=== PATIENT | male | born 1945 ===

== ENCOUNTER → 2023-08-05 10:15 | Outpatient (REF) | payer OTHER, SELFPAY | LOC: DHCBS HW 10:15 | PROVIDERS: ATTENDING PHYSICIAN Internal Medicine Cardiovascular Disease; FAMILY PHYSICIAN Nurse Practitioner Family | DX: I35.1 Nonrheumatic aortic (valve) insufficiency (principal); I70.0 Atherosclerosis of aorta | CPT/HCPCS: 93306 ==

== ENCOUNTER → 2023-09-02 10:00 | Outpatient (REF) | payer OTHER, SELFPAY | LOC: HWRAD 10:00 | PROVIDERS: ATTENDING PHYSICIAN Nurse Practitioner Family | DX: R22.31 Localized swelling, mass and lump, right upper limb (principal) | CPT/HCPCS: 76882 ==

== ENCOUNTER → 2023-11-26 08:07 | Outpatient (REF) | payer OTHER, SELFPAY | LOC: HWRAD 08:07 | PROVIDERS: ATTENDING PHYSICIAN Nurse Practitioner Family | DX: M85.80 Other specified disorders of bone density and structure, unspecified site (principal) | CPT/HCPCS: 77080 ==

== ENCOUNTER → 2023-12-27 08:47 | Outpatient (REF) | payer OTHER, SELFPAY ==
[2023-12-27 12:31] LABS: Potassium 3.4 mmol/L (3.5-5.1)
[2023-12-27 13:06] LABS: PSA, Total - Screen 1.73 ng/ml (0.0-4.0)
== END ==
LOC: HWLAB 08:47
PROVIDERS: ATTENDING PHYSICIAN Nurse Practitioner Family
DX: Z12.5 Encounter for screening for malignant neoplasm of prostate (principal); E87.6 Hypokalemia
CPT/HCPCS: 36415; 84132; G0103

== ENCOUNTER → 2024-03-11 10:55 | Outpatient (REF) | payer OTHER, SELFPAY | LOC: HWRAD 10:55 | PROVIDERS: ATTENDING PHYSICIAN Nurse Practitioner Family | DX: R06.01 Orthopnea (principal) | CPT/HCPCS: 71046 ==

== ENCOUNTER → 2024-04-29 16:16 | Outpatient (REF) | payer OTHER, SELFPAY | LOC: HWRAD 16:16 | PROVIDERS: ATTENDING PHYSICIAN Nurse Practitioner Family | DX: M25.9 Joint disorder, unspecified (principal); M79.671 Pain in right foot | CPT/HCPCS: 73564; 73630 ==

== ENCOUNTER → 2024-05-22 16:07 | Outpatient (REF) | payer OTHER, SELFPAY | LOC: HWRAD 16:07 | PROVIDERS: ATTENDING PHYSICIAN Nurse Practitioner Family | DX: M25.531 Pain in right wrist (principal) | CPT/HCPCS: 73110 ==

== ENCOUNTER → 2024-08-10 13:54 | Outpatient (REF) | payer OTHER, SELFPAY | LOC: HWRCS 13:54 | PROVIDERS: ATTENDING PHYSICIAN Internal Medicine Cardiovascular Disease; FAMILY PHYSICIAN Nurse Practitioner Family | DX: I35.1 Nonrheumatic aortic (valve) insufficiency (principal) | CPT/HCPCS: 93306 ==

== ENCOUNTER → 2024-08-14 14:50 | Outpatient (REF) | payer OTHER, SELFPAY | LOC: HWRAD 14:50 | PROVIDERS: ATTENDING PHYSICIAN Nurse Practitioner Family | DX: R06.02 Shortness of breath (principal) | CPT/HCPCS: 71046 ==

== ENCOUNTER → 2024-08-18 06:55 | Outpatient (REF) | payer OTHER, SELFPAY ==
[2024-08-18 09:32] LABS: % Basophils 0.8 % (0-2); % Eosinophils 1.3 % (0-6); % Immature Granulocytes 0.4 % (0-0.5); % Monocytes 9.4 % (1.7-9.3); % Neutrophils 60.1 % (42.2-75.2); Absolute Basophils 0.1 10^3/uL (0-0.2); Absolute Eosinophils 0.1 10^3/uL (0-0.7); Absolute Lymphocytes 2.2 10^3/uL (1.2-3.4); Absolute Monocytes 0.8 10^3/uL (0.1-0.6); Absolute Neutrophils 4.8 10^3/uL (1.4-6.5); Hematocrit 43.3 % (39.0-52.0); Hemoglobin 14.5 g/dL (13.0-18.0); Mean Corp Hgb Conc. 33.5 g/dL (33.0-37.0); Mean Corpuscular Hgb 32.8 pg (27.0-31.0); Nucleated Red Blood Cells % 0 % (-); Platelet Count 213 10^3/uL (130-400); Red Blood Cell Count 4.42 10^6/uL (4.70-6.10); Red Cell Dist. Width 13.6 % (11.5-14.5)
[2024-08-18 09:36] LABS: Urine Albumin Negative (Neg - Trace); Urine Bilirubin Negative (Negative); Urine Character Clear (Clear); Urine Color Yellow; Urine Glucose Negative (Negative); Urine Ketone Negative (Negative); Urine Leukocyte Negative (Negative); Urine Nitrite Negative (Negative); Urine Occult Blood 2+ (Negative); Urine Specific Gravity 1.015 (<1.030); Urine Urobilinogen Negative (Neg - 1+)
[2024-08-18 09:51] LABS: Urine Squamous Cell 0-2 /LPF (Few); Urine White Cell 0-2 /HPF (0-5)
[2024-08-18 10:15] LABS: Glycohemoglobin (HgbA1c) 5.8 % (4.0-5.6)
[2024-08-18 10:35] LABS: ALT (SGPT) 34 U/L (0-50); AST (SGOT) 35 U/L (17-59); Albumin 4.6 g/dl (3.5-5.0); Alkaline Phosphatase 68 U/L (38-126); Blood Urea Nitrogen 21 mg/dl (9-20); Calcium 9.6 mg/dl (8.4-10.2); Carbon Dioxide 26 mmol/L (22-30); Chloride 105 mmol/L (98-107); Glucose 108 mg/dl (70-99); HDL Cholesterol 57 mg/dl; LDL Cholesterol, Calculated 32 mg/dl; Potassium 3.6 mmol/L (3.5-5.1); Sodium 144 mmol/L (135-145); Total Bilirubin 1.2 mg/dl (0.2-1.3); Total Cholesterol 124 mg/dl (50-199); Total Protein 7.3 g/dl (6.3-8.2); Triglyceride 177 mg/dl (10-149); Very Low Density Lipoprotein 35 mg/dl (0-30); eGFR > 60.00
[2024-08-18 10:41] LABS: Vitamin D, 25-OH*** 47.5 ng/mL (30-80)
[2024-08-18 10:54] LABS: TSH Reflex To Free T4 3.31 uIU/ml (0.47-4.68)
== END ==
LOC: HWLAB 06:55
PROVIDERS: ATTENDING PHYSICIAN Internal Medicine Cardiovascular Disease; FAMILY PHYSICIAN Nurse Practitioner Family
DX: I10 Essential (primary) hypertension (principal); H44.23 Degenerative myopia, bilateral; I35.1 Nonrheumatic aortic (valve) insufficiency; E78.1 Pure hyperglyceridemia; R73.01 Impaired fasting glucose; K76.0 Fatty (change of) liver, not elsewhere classified; E55.9 Vitamin D deficiency, unspecified; R31.9 Hematuria, unspecified; Z12.5 Encounter for screening for malignant neoplasm of prostate; M85.80 Other specified disorders of bone density and structure, unspecified site; D22.9 Melanocytic nevi, unspecified
CPT/HCPCS: 36415; 80053; 80061; 81003; 81015; 82306; 83036; 83880; 84443; 85025

== ENCOUNTER → 2024-09-16 07:59 | Outpatient (REF) | payer OTHER, SELFPAY | LOC: HWRCS 07:59 | PROVIDERS: ATTENDING PHYSICIAN Internal Medicine Cardiovascular Disease; FAMILY PHYSICIAN Nurse Practitioner Family | DX: I35.1 Nonrheumatic aortic (valve) insufficiency (principal); Q23.1 Congenital insufficiency of aortic valve; E78.5 Hyperlipidemia, unspecified; I10 Essential (primary) hypertension | CPT/HCPCS: 78452; 93017; A9500; J2785 ==

== ENCOUNTER → 2024-10-12 12:49 | Outpatient (REF) | payer OTHER, SELFPAY ==
[2024-10-12 16:13] LABS: Blood Urea Nitrogen 19 mg/dl (9-20); Calcium 10.2 mg/dl (8.4-10.2); Carbon Dioxide 29 mmol/L (22-30); Chloride 110 mmol/L (98-107); Glucose 115 mg/dl (70-99); Sodium 145 mmol/L (135-145); eGFR > 60.00
[2024-10-12 16:19] LABS: D-Dimer 0.39 ug/mlFEU (0.00-0.50)
== END ==
LOC: HWLAB 12:49
PROVIDERS: ATTENDING PHYSICIAN Internal Medicine Cardiovascular Disease; FAMILY PHYSICIAN Nurse Practitioner Family
DX: I10 Essential (primary) hypertension (principal); E78.5 Hyperlipidemia, unspecified
CPT/HCPCS: 36415; 80048; 85379

== ENCOUNTER → 2025-01-04 09:48 | Outpatient (REF) | payer OTHER, SELFPAY ==
[2025-01-04 13:00] LABS: PSA, Total - Screen 0.79 ng/ml (0.0-4.0)
== END ==
LOC: HWLAB 09:48
PROVIDERS: ATTENDING PHYSICIAN Specialist; FAMILY PHYSICIAN Nurse Practitioner Family
DX: Z12.5 Encounter for screening for malignant neoplasm of prostate (principal)
CPT/HCPCS: 36415; G0103

== ENCOUNTER → 2025-02-22 07:46 | Outpatient (REF) | payer OTHER, SELFPAY ==
[2025-02-22 10:03] LABS: Hematocrit 43.1 % (39.0-52.0); Hemoglobin 14.2 g/dL (13.0-18.0); Mean Corp Hgb Conc. 32.9 g/dL (33.0-37.0); Mean Corpuscular Volume 96.6 fL (80.0-94.0); Nucleated Red Blood Cells % 0 % (-); Platelet Count 205 10^3/uL (130-400); Red Cell Dist. Width 13.1 % (11.5-14.5)
[2025-02-22 10:53] LABS: ALT (SGPT) 34 U/L (0-50); AST (SGOT) 32 U/L (17-59); Albumin 4.8 g/dl (3.5-5.0); Alkaline Phosphatase 66 U/L (38-126); Blood Urea Nitrogen 18 mg/dl (9-20); Calcium 9.3 mg/dl (8.4-10.2); Carbon Dioxide 28 mmol/L (22-30); Chloride 107 mmol/L (98-107); Glucose 119 mg/dl (70-99); HDL Cholesterol 54 mg/dl; LDL Cholesterol, Calculated 38 mg/dl; Potassium 3.4 mmol/L (3.5-5.1); Sodium 142 mmol/L (135-145); Total Protein 7.5 g/dl (6.3-8.2); Very Low Density Lipoprotein 27 mg/dl (0-30); eGFR > 60.00
== END ==
LOC: HWLAB 07:46
PROVIDERS: ATTENDING PHYSICIAN Nurse Practitioner Family
DX: I10 Essential (primary) hypertension (principal); H44.23 Degenerative myopia, bilateral; Z86.69 Personal history of other diseases of the nervous system and sense organs; I35.1 Nonrheumatic aortic (valve) insufficiency; E78.1 Pure hyperglyceridemia; R73.01 Impaired fasting glucose; Z86.19 Personal history of other infectious and parasitic diseases; K76.0 Fatty (change of) liver, not elsewhere classified; E55.9 Vitamin D deficiency, unspecified; R31.9 Hematuria, unspecified; Z12.11 Encounter for screening for malignant neoplasm of colon; M85.80 Other specified disorders of bone density and structure, unspecified site; R06.02 Shortness of breath
CPT/HCPCS: 36415; 80053; 80061; 84443; 85025